=== PATIENT | male | born 1950 | race Caucasian/White ===

== ENCOUNTER 2017-08-11 09:20 | Day surgery (SDC) | payer OTHER, MEDICARE ==
[2017-08-10 16:14] LABS: HEMATOCRIT 44.5 % (42.0-54.0); HEMOGLOBIN 15.1 g/dL (13.5-17.5); MCH 31.3 pg (26.0-34.0); MCHC 33.9 g/dL (31.0-37.0); MCV 92.3 fL (80.0-100.0); MEAN PLATELET VOLUME 11.4 fL (7.4-10.4); RBC 4.82 10x6/uL (4.20-6.10); RDW 12.2 % (11.5-14.5); WBC 9.5 10x3/uL (4.8-10.8)
[2017-08-10 16:32] LABS: CALC OSMOLALITY 283 mosm/kg (275-300); CALCIUM 8.9 mg/dL (8.5-10.1); CARBON DIOXIDE 32.1 mmol/L (21.0-32.0); CHLORIDE - SERUM 102 mmol/L (98-107); CREATININE - SERUM 0.8 mg/dL (0.6-1.3); GLUCOSE 157 mg/dL (74-106); POTASSIUM - SERUM 3.6 mmol/L (3.5-5.1); SODIUM 141 mmol/L (136-145); UREA NITROGEN 12 mg/dL (7-18); eGFR NON AFRICAN AMERICAN > 90 mL/min (90-120)
[~2017-08-11] VITALS: Ht 180.3 cm; Wt 105.7 kg
[2017-08-11 11:27] VITALS: BP 140/80; Ht 180.3 cm; Wt 105.7 kg
--- NOTE | 2017-08-11 15:27 | NUR ---
HYDRALAZINE ADMIN BY ANESTHESIA ATH THE END OF THE CASE FOR HTN
--- NOTE | 2017-08-11 15:50 | NUR ---
1535 BACK FROM NASAL SURGERY. O2 2L N/C. NO BLEEDING HOB ELEVATED. RESP EVEN AND NONLABORED.
--- NOTE | 2017-08-11 19:36 | NUR ---
1605 O2 SAT 94 ON ROOM AIR. HAVING SOME STUFFINESS. TOLD PATIENT AND WILL BE UNCOMFORTABLE AND NASAL STUFFINESS. TOLD HAD 2 SPLINT IN NOSE AND WILL NEED TO SEE DR. NAILS IN OFFICE AND WILL BE REMOVED.
--- NOTE | 2017-08-11 19:38 | NUR ---
1635 V/S STABLE NO BLEEDING.
--- NOTE | 2017-08-11 19:39 | NUR ---
1640 IV DCD CATHETER INTACT. WENT OVER DISCHARGE INSTRUCTIONS AND VERBALLY UNDERSTANDS.
--- NOTE | 2017-08-11 19:40 | NUR ---
1700 TO HOME VIA W/C WITH SMALL AMT BLEEDING NOTED WHEN UP BUT STOPPED. TOLD WAS NORMAL REMINDED LIGHT ACTIVITY AND SIFT DIET.
--- NOTE | 2017-09-13 13:13 | HP ---
PATIENT: AUTUMN OMRA MEDICAL RECORD: [id number] ACCOUNT: [id number] LOCATION:[facility] : 46 ADMISSION DATE: 08/11/17 HISTORY AND PHYSICAL EXAMINATION HISTORY OF PRESENT ILLNESS: Autumn is a 67-year-old male. He has been having problems with sleep apnea, but was unable to tolerate the CPAP mask. He is snoring. He has nasal obstructions and problems at night to contribute to his difficulty, but managing the CPAP, has been refractory to medical management and he is being admitted for septoplasty, bilateral inferior turbinate reduction, and uvulectomy. PAST MEDICAL HISTORY: Includes diabetes, hypertension, and prostate cancer. PAST SURGICAL HISTORY: Includes prostatectomy. CURRENT MEDICATIONS: Lisinopril, cyclobenzaprine, simvastatin, hydrochlorothiazide, amlodipine, metformin. PHYSICAL EXAMINATION: GENERAL: Healthy-appearing, developmentally normal. FACE: Normal, symmetric, no lesions. EYES: Sclerae and conjunctivae are normal. EARS: Canals and TMs are normal. NOSE: He has severe septal deviation, large inferior turbinates. ORAL CAVITY AND OROPHARYNX: Normal tonsil tissue. He has a low palate with thick fat uvula. NECK: No masses, no adenopathy. CHEST: Clear. CARDIOVASCULAR: Regular rate and rhythm, no murmur. EXTREMITIES: Normal. IMPRESSION: Sleep apnea, nasal obstruction, septal deviation, turbinate hypertrophy, and snoring uvula edema. PLAN: Septoplasty, bilateral inferior turbinate reduction, and uvulectomy. TRANSINT:[id number] Voice Confirmation ID: [id number] DOCUMENT ID: [id number] IVAN NAILS MD at 1313 CC: [id number] DICTATION DATE: 08/10/17 1020 STEAM GIGGER: 08/10/17 1103 [facility] 08/11/17 [facility] [address] [place] [id number]
--- NOTE | 2017-09-13 13:13 | OP ---
PATIENT NAME: AUTUMN MORA MEDICAL RECORD: [id number] :46 [facility]: SURGEON: IVAN MASON MD DATE OF OPERATION: 08/11/2017 PREOPERATIVE DIAGNOSES: Nasal obstruction, septal deviation, turbinate hypertrophy, recurrent uvula edema, and sleep apnea. POSTOPERATIVE DIAGNOSES: Nasal obstruction, septal deviation, turbinate hypertrophy, recurrent uvula edema, and sleep apnea. PROCEDURES: Septoplasty, bilateral inferior turbinate reduction, and uvulectomy. SURGEON: Ivan Mason MD ANESTHESIA: General orotracheal. BLOOD LOSS: 10 cc. SPECIMENS: uvula. PACKING: Osorio splints bilaterally. COMPLICATIONS: None. DISPOSITION: Recovery stable. DESCRIPTION OF PROCEDURE: He was brought to the operating room and placed in supine position, sedated and intubated by anesthesia. Eyes were taped. Using a headlight and nasal speculum, the nose was examined and the septum. Floor of the nose and inferior turbinate were injected with a total of 1.5 of 1% lidocaine with 1:100,000 epinephrine and Afrin pledgets were placed in each side of the nose. He was positioned, prepped, and draped in the usual fashion for nasal surgery. Using a headlight and nasal speculum, all the pledgets were removed. A left-sided Richard incision was made and ipsilateral mucoperichondrial flap was elevated. Caudal septum was deviated into the left nostril and it had really poor tip support. There was redundant cartilage over the maxillary spine with a caudal septum rolled over into the left floor of the nose. That redundant cartilage was removed allowing the septum to be rotated into the midline. A pocket was created between the lower lateral cartilages and the septum was moved into the midline. Relaxing incisions were made. The bony cartilaginous junction was disarticulated and a bony spur was removed posteriorly to allow the cartilagenous septum to fall to the midline, give a little more tip support, and to create a good airway on both sides. Once that was done, the Richard incision was closed with interrupted 4-0 chromic. Then, both the inferior turbinates were medialized with a freer. A Gruenwald was used to take down the inferior redundant portion of the turbinates and suction cautery was used to stop any bleeding and then they were outfractured with a Ripon elevator giving good and open nasal airway all the way back to the nasopharynx on both sides. Osorio splints coated with mupirocin ointment were placed in both sides of the nose and sutured through the anterior membranous septum with a 2-0 Prolene on a Jovany needle. Then, the table was turned 90 degrees. A head drape was applied and he was positioned for uvulectomy. Using a headlight, a Rizwana-Rachid mouth gag was carefully inserted and elevated on a OPERATIVE REPORT [id number] AUTUMN MORA on his chest. He had a very low palate. No tonsil tissue to speak of and his palate was thick and edematous. The uvula was grasped at the tip and lifted up. An incision was made across the posterior portion of the uvula, preserving all the nasopharyngeal mucosa of the palate. Then, an incision was made on the anterior portion of the muscle. The uvula was divided. Bleeding was controlled with cautery and the incision was closed with multiple interrupted 3-0 Vicryl sutures. The nasopharynx was suctioned and examined with a mirror was normal with the field clean and dry. The Rizwana-Rachid mouth gag was let down and removed. He was awakened, extubated, and transported to recovery in good condition with no complications. TRANSINT:[id number] Voice Confirmation ID: [id number] DOCUMENT ID: [id number] IVAN MASON MD at 1313 CC: [id number] DICTATION DATE: 08/11/17 1456 SENIOR SOFTWARE DEVELOPER: 08/11/17 1538 [facility] 08/11/17 [id number] [place] [address]
== END 2017-08-11 17:00 | disposition home or self-care (01) ==
LOC: D.OPS 09:20 → D.PAN 10:45 → D.OPS 11:00 → D.PAN 11:15 → D.OPS 11:15
PROVIDERS: Anesthesiology
DX: J34.2 Deviated nasal septum (principal); J34.3 Hypertrophy of nasal turbinates; K13.79 Other lesions of oral mucosa; G47.30 Sleep apnea, unspecified; Z01.812 Encounter for preprocedural laboratory examination; E11.9 Type 2 diabetes mellitus without complications; I10 Essential (primary) hypertension; Z85.46 Personal history of malignant neoplasm of prostate; Z79.84 Long term (current) use of oral hypoglycemic drugs; Z79.899 Other long term (current) drug therapy

== ENCOUNTER → 2018-09-06 08:26 | Outpatient (CLI) | payer BC, MEDICARE ==
[2017-08-11 11:27] VITALS: BMI 32.5
== END | disposition home or self-care (01) ==
LOC: D.MRI 08:26
DX: R93.7 Abnormal findings on diagnostic imaging of other parts of musculoskeletal system (principal)